=== PATIENT | male | born 1980 | race Caucasian/White ===

== ENCOUNTER 2017-01-28 14:58 | Emergency (ER) | payer MEDICAID, OTHER ==
[~2017-01-28] VITALS: Ht 167.6 cm; Wt 90.0 kg
[~2017-01-28 14:58] MED LIST: IBUP-1542 PO; TRAM-40 PO
[2017-01-28 15:01] VITALS: Ht 167.6 cm; Wt 90.0 kg
--- NOTE | 2017-01-28 17:08 | ERD ---
ER Documentation Chief Complaint Date/Time DATE: 01/28/17 TIME: 16:46 Chief Complaint ANKLE SPRAIN HPI This 36-year-old male patient presents to emergency department today for right ankle injury. Patient reports walking into his house and getting his pants caught on the door frame. He continued to walk forward gripping his pants causing him to twist his right ankle. Patient did not hit the ground, denies hitting his head or knockout. Patient needed assistance in standing. Is able to weight-bear and ambulate with a slight limp. ROS All systems reviewed and are negative except as per history of present illness. Medications Home Meds Active Scripts Ibuprofen* (Motrin*) 400 Mg Tab, 400 MG PO Q6, #30 TAB Prov:CARTERCANDI 01/28/17 Tramadol Hcl* (Ultram*) 50 Mg Tablet, 50 MG PO Q6H Y for PAIN, #20 TAB Prov:CARIE CROCKER MD 12/17/15 Ibuprofen* (Motrin*) 600 Mg Tab, 600 MG PO Q6, #20 TAB Prov:CARIE CROCKER MD 12/17/15 Allergies Allergies: Coded Allergies: No Known Allergy (Unverified , 12/17/15) PMhx/Soc Hx Alcohol Use: No Hx Substance Use: No Hx Tobacco Use: No Physical Exam Vitals Vital Signs Date Time Temp Pulse Resp B/P Pulse Ox O2 Delivery O2 Flow Rate FiO2 01/28/17 15:01 98.5 82 18 122/76 97 Vitals stable, triage notes reviewed Physical Exam Const: Well-nourished pleasant well-appearing ambulating with slight limp in no acute distress Head: Atraumatic Eyes: Normal Conjunctiva ENT: Normal External Ears, Nose and Mouth. Neck: Full range of motion..~ No meningismus. Resp: Clear to auscultation bilaterally Cardio: Regular rate and rhythm, no murmurs Abd: Soft, non tender, non distended. Normal bowel sounds Skin: No petechiae or rashes Back: No midline or flank tenderness Ext: Lower Extremity - bilateral: Skin: Skin intact, soft tissue tissue swelling with ecchymosis noted right leg lateral ligaments Compartments: Soft Motor: Patient able to fully weight-bear, ambulating with a limp. Has full range of motion with flexion extension rotation of ankle, able to wiggle toes. Patient's knee with normal extension and flexion, no hip flexor dysfunction abduction and abduction within normal limits. Sensation: Intact to light touch all surfaces Bones: No pain in the mall ER zone, no bony point tenderness posterior edge of lateral malleolus, no bone tenderness at posterior edge or top of the medial malleolus. Patient is able to bear weight ambulating freely. No pain midfoot zone, no bony point tenderness at fifth metatarsal no bony point tenderness at navicular. Joints: No effusion or laxity Pulses/Perfusion: 2+ DP, Capillary refill < 2 seconds Neur: Awake and alert Psych: Normal Mood and Affect Procedures/MDM This pleasant 36-year-old male patient presents to emergency department for evaluation of right ankle injury. [place] ankle rule applied patient has no tenderness 6 cm above proximal edge of lateral malleolus. There is no tenderness at base of fifth metatarsal. No tenderness posterior edge of the medial malleolus, no navicular tenderness. Ankle x-ray is not indicated. Low suspicion for fracture, subluxation, or dislocation. X-ray versus Early rules discussed with patient, agrees no x-ray indicated at this time. Patient will return for worsening of symptoms. Patient placed in a Mehdi wrap reports immediate improvement in pain symptoms ambulating with limp. Patient will be discharged with rice therapy, rest ice compression elevation, 2 days off of work , and Motrin 400 mg every 6 hours as needed pain. Return to emergency department for increased pain, bruising, inability to walk. I feel the patient is stable for discharge at this time. I have discussed results, examination findings, the treatment plan with the patient and family present prior to discharge. Indications for emergent reevaluation, side effects of medication were also discussed. All questions were answered. Patient verbalizes understanding and agrees with plan of care. Departure Diagnosis: Primary Impression: Ankle injury Encounter type: initial encounter Laterality: right Qualified Code: S99.911A - Ankle injury, right, initial encounter Condition: Good Patient Instructions: Treating Ankle Sprains Additional Instructions: Thank you for for coming to [facility] for your care today. Please ask your nurse or provider if you have questions about your care today and do not leave until all your questions have been answered. Please use any medications given as directed and follow-up with your doctor (or the doctor you were referred to) in the next 2-3 days. If you do not have a primary care doctor you may follow up at the [facility] [place] [facility] (listed below). You may also use motrin and tylenol as needed for fever and/or pain unless instructed otherwise by your provider or nurse. Indications for more urgent follow-up have been discussed, but you may return to the Emergency Department at ANY time for any worrisome or worsening symptoms. If you have abdominal pain, please know that no test or exam you received is perfect and you should follow up within 8 hours for continued pain. If you had any imaging studies today, such as an X-Ray or CT Scan, these studies will be reviewed later by a radiologist. You will be called if there are important findings that were not identified today, so make sure the contact information you provided at registration is correct. If you received any narcotic pain control medicine today, such as Vicodin, Morphine or Dilaudid, your coordination and judgment may be affected for a number of hours. Please do not drive or operate heavy machinery, and you may want someone to assist you at home. If you were given a prescription for narcotic medication, be aware that it is very addictive- use sparingly and only if necessary. CANDI MACHADO Jan 28, 2017 17:01
[2017-01-28] MEDS ORDERED: IBUP400T22 PO (17:09)
== END 2017-01-28 17:00 | disposition home or self-care (01) ==
LOC: E/R 14:58
DX: S99.911A Unspecified injury of right ankle, initial encounter (principal); W23.1XXA Caught, crushed, jammed, or pinched between stationary objects, initial encounter; Y92.9 Unspecified place or not applicable
CPT/HCPCS: 99282